=== PATIENT | female | born 1955 | race African-American/Black ===

== ENCOUNTER 2020-08-28 19:12 | Emergency (ER) | payer OTHER, BC ==
[2020-08-28] MEDS ORDERED: Cyclobenzaprine 10 MG TAB ONE (20:07)
== END 2020-08-28 21:53 | disposition home or self-care (01) ==
LOC: ERS 19:12
DX: S16.1XXA Strain of muscle, fascia and tendon at neck level, initial encounter (principal); S46.812A Strain of other muscles, fascia and tendons at shoulder and upper arm level, left arm, initial encounter; E11.9 Type 2 diabetes mellitus without complications; I10 Essential (primary) hypertension; V49.3XXA Car occupant (driver) (passenger) injured in unspecified nontraffic accident, initial encounter

== ENCOUNTER 2023-07-28 09:21 | Day surgery (SDC) | payer MEDICARE ==
[2023-07-27 10:21] VITALS: BMI 37.0
[~2023-07-28 09:21] MED LIST: EPINEPHrine 0.3 MG, Dextrose 50% 3 ML in Ophthalmic Irrigation Solution 500 ML IRR SCH
[2023-07-28] MEDS ORDERED: PHENYLephrine 2.5% Ophth Soln 15 ml Bottle ONE (10:55)
[2023-07-28] MEDS ORDERED: Cyclopentolate 0.5% Opth Drops 15 ML BOT ONE (10:56)
[2023-07-28] MEDS ORDERED: fentaNYL 50 mcg/mL 1 mL Vial ONE (11:17)
[2023-07-28] MEDS ORDERED: PROPOFOL 20 ML ONE (11:17)
[2023-07-28] MEDS ORDERED: Midazolam HCl 2 mg/2 ml Vial ONE (11:17)
[2023-07-28] MEDS ORDERED: Maxitrol 0.1% Opth Oint 3.5 GM TUBE ONE (11:55)
[2023-07-28] MEDS ORDERED: Bupivacaine 0.75% 10 ML VIAL ONE (11:55)
[2023-07-28] MEDS ORDERED: Triamcinolone 40 MG/ML VIAL ONE (11:55)
[2023-07-28] MEDS ORDERED: Lidocaine 1% PF 5 ML VIAL ONE (11:55)
[2023-07-28] MEDS ORDERED: Lidocaine 4% PF 5 ML AMP ONE (11:55)
[2023-07-28] MEDS ORDERED: CEFAZOLIN 1 GM VIAL ONE (11:55)
[2023-07-28] MEDS ORDERED: Dextrose 50% Abboject 50 ML SYRINGE ONE (11:55)
== END 2023-07-28 13:50 | disposition home or self-care (01) ==
LOC: SDC 09:21
PROVIDERS: ATTEND Ophthalmology Retina Specialist
PROC: 08T43ZZ Resection of Right Vitreous, Percutaneous Approach (ICD-10-PCS; principal; 2023-07-28)
PROC: 08QE3ZZ Repair Right Retina, Percutaneous Approach (ICD-10-PCS; 2023-07-28)
DX: H33.41 Traction detachment of retina, right eye (principal); E11.65 Type 2 diabetes mellitus with hyperglycemia; I10 Essential (primary) hypertension; E78.5 Hyperlipidemia, unspecified; Z95.1 Presence of aortocoronary bypass graft; Z90.710 Acquired absence of both cervix and uterus; Z90.49 Acquired absence of other specified parts of digestive tract; Z79.899 Other long term (current) drug therapy; Z79.84 Long term (current) use of oral hypoglycemic drugs
CPT/HCPCS: 67113; 93005; J3010; 67025; 93010; J0171; J0690; J2250; J2704; J3301; J3490; J7999

== ENCOUNTER 2024-12-22 21:36 | Emergency (ER) | payer MEDICARE ==
[2024-12-22] MEDS ORDERED: Acetaminophen 500 MG TAB ONE (23:49)
[2024-12-23] MEDS ORDERED: Ketorolac Tromethamine 30 MG (1 mL) VIAL ONE (00:37)
== END 2024-12-23 01:00 | disposition home or self-care (01) ==
LOC: ERS 21:36
DX: S93.601A Unspecified sprain of right foot, initial encounter (principal); E11.9 Type 2 diabetes mellitus without complications; I10 Essential (primary) hypertension; W01.0XXA Fall on same level from slipping, tripping and stumbling without subsequent striking against object, initial encounter
CPT/HCPCS: 73630; J1885; J3010; 96372; 99283